=== PATIENT | female | born 1970 | race Caucasian/White ===

== ENCOUNTER 2023-07-17 18:10 | Emergency (ER) | payer SELFPAY ==
[2023-07-17 19:22] LABS: HEMOGLOBIN 10.9 g/dL (12.0-16.0); MEAN CORPUSCULAR HEMOGLOBIN 28.8 pg (27.0-34.0); MEAN CORPUSCULAR HGB CONC 32.1 g/dL (33.0-35.0); MEAN CORPUSCULAR VOLUME 89.9 fL (80-100); PLATELET COUNT,PLT 561 10^3/uL (150-450); RED BLOOD CELL COUNT 3.78 10^6/uL (4.2-5.4); WHITE BLOOD CELL COUNT,WBC 23.1 10^3/uL (5.0-10.0)
[2023-07-17 19:26] VITALS: BP 149/80; PULSE 113
[2023-07-17 19:27] LABS: LYMPHOCYTES PERCENT AUTO 8.2 % (20.5-50.1); MONOCYTES PERCENT AUTO 3.8 % (2-8); NEUTROPHILS PERCENT AUTO 87.2 % (42.2-75.2)
[2023-07-17 19:28] LABS: BASOPHILS PERCENT AUTO 0.2 % (0.0-1.0); EOSINOPHILS PERCENT AUTO 0.6 % (1.0-3.0)
[2023-07-17 19:35] LABS: ALBUMIN 2.7 g/dL (3.4-5.0); ANION GAP 15.3 mEq/L (7-13); BILIRUBIN TOTAL 0.8 mg/dL (0.2-1.0); BUN/CREATININE RATIO 3.8 (No establ ref range); C-REACTIVE PROTEIN 24.79 ng/dL (<=0.50); CALCIUM 10.3 mg/dL (8.5-10.1); CREATININE 2.66 mg/dL (0.55-1.02); EST CRCL DRUG DOSING (CG) 23.51 mL/min; POTASSIUM,K 4.3 mmol/L (3.5-5.1); PROTEIN TOTAL,TP 8.3 g/dL (6.4-8.2)
[2023-07-17 19:37] LABS: A/G RATIO 0.48
[2023-07-17 19:48] LABS: BAND PERCENT MAN 1 %; EOSINOPHILS PERCENT MAN 2 % (1-3); LYMPHOCYTES PERCENT MAN 9 % (20-50); MONOCYTES PERCENT MAN 1 % (2-8); SEG NEUTROPHILS PERCENT MAN 87 % (42-75)
[2023-07-17] MEDS: Cefepime 2 GM Vial IVPUSH ONE (20:27)
[2023-07-17] MEDS ORDERED: Glucagon,Human Recombinant 1 MG Vial IM PRN (20:27)
[2023-07-17] MEDS ORDERED: 50% Dextrose in Water 50 ML Syringe IVPUSH PRN (20:27)
[2023-07-17] MEDS: Sodium Chloride 0.9% 1,000 ML IV ONE (20:28)
[2023-07-17] MEDS: fentaNYL 100 MCG/2 ML SDV IVPUSH ONE ×2 (20:38→22:56)
[2023-07-17] MEDS: Insulin Lispro 100 Units/ML 3 ML Vial SUBCUT ONE (20:40)
[2023-07-17] MEDS: metroNIDAZOLE/Normal Saline 500 MG in Premix Bag 1 BAG IV ONE (22:12)
[2023-07-18] MEDS: Acetaminophen 325 MG Tab PO ONE (00:27)
[2023-07-18] MEDS: metroNIDAZOLE/Normal Saline 500 MG in Premix Bag 1 BAG IV ONE (06:05)
== END 2023-07-18 10:41 | disposition critical access hospital (66) ==
LOC: DL.ED 18:10
DX: M86.9 Osteomyelitis, unspecified (principal); I96 Gangrene, not elsewhere classified; Z79.899 Other long term (current) drug therapy
CPT/HCPCS: 36415; 73700; 80053; 82947; 83605; 85025; 86140; 87040; 96361; 96365; 96366; 96367; 96375; 96376; 99285; A9270; J0692; J1815; J1836; J3010; J3370; J7030; J7050